=== PATIENT | male | born 1965 | race Caucasian/White ===

== ENCOUNTER → 2021-12-20 | Outpatient (CLI) | payer BC ==
[2021-12-20 11:10] LABS: HEMOGLOBIN 13.8 gm/dl (14.0-17.5); RED BLOOD COUNT 4.6 M/UL (4.20-5.50); WHITE BLOOD COUNT 10.8 K/UL (4.5-11.0)
[2021-12-20 11:34] LABS: BUN/CREATININE RATIO 17 (0-10)
== END ==
LOC: EROP 10:32
PROVIDERS: Family Medicine
DX: R50.9 Fever, unspecified (principal); Z20.822 Contact with and (suspected) exposure to COVID-19
CPT/HCPCS: 0240U; 71046; 80053; 81001; 83605; 85025; 86140